=== PATIENT | female | born 1990 | race Caucasian/White ===

== ENCOUNTER 2018-12-08 16:28 | Emergency (ER) | payer BC, OTHER ==
[~2018-12-08] VITALS: Ht 175.3 cm; Wt 90.7 kg
[2018-12-08 16:38] VITALS: BP 145/81
== END 2018-12-08 17:05 | disposition home or self-care (01) ==
LOC: ER 16:33
DX: E11.9 Type 2 diabetes mellitus without complications (principal); Z76.0 Encounter for issue of repeat prescription